=== PATIENT | female | born 1990 | race Hispanic/Latino ===

== ENCOUNTER 2017-09-27 15:05 | Outpatient (CLI) | payer MEDICAID ==
[2017-09-27 15:54] VITALS: BP 122/69
== END 2017-09-27 16:21 | disposition home or self-care (01) ==
LOC: TRG 15:05
PROVIDERS: ATTEND Obstetrics & Gynecology
DX: O47.03 False labor before 37 completed weeks of gestation, third trimester (principal); Z3A.36 36 weeks gestation of pregnancy
CPT/HCPCS: 59025